=== PATIENT | female | born 1965 | race Hispanic/Latino ===

== ENCOUNTER → 2017-12-07 | Outpatient (CLI) | payer OTHER | LOC: SLEEP 18:40 | PROVIDERS: ATTEND Family Medicine | DX: G47.30 Sleep apnea, unspecified (principal) ==

== ENCOUNTER 2019-03-15 23:48 | Inpatient (IN) | payer OTHER ==
[~2019-03-15] VITALS: Ht 149.9 cm; Wt 86.2 kg
[2019-03-15] MEDS ORDERED: PANTOPRAZOLE 40 MG 10ML VIAL IV STA (23:50)
[2019-03-15] MEDS ORDERED: ONDANSETRON HCL INJ 2MG/ML 2ML 2 MG/ML VIAL IV STA (23:50)
[2019-03-16] VITALS (8 sets, daily range): BP systolic 120–184; BP diastolic 65–103
[2019-03-16] MEDS ORDERED: LIDOCAINE VISC 2% SOLN 15 ML UDC PO ONE
[2019-03-16] MEDS ORDERED: MAGNESIUM/ALUMINUM/SIMETHICONE 30 ML UDC PO ONE
[2019-03-16] MEDS ORDERED: BELLADONNA ALK/PHENOBARBITAL 5 ML UDC PO ONE
[2019-03-16] MEDS ORDERED: MAGNESIUM/ALUMINUM/SIMETHICONE 30 ML UDC ONE (00:06)
[2019-03-16 00:20] LABS: BASOPHILS % 0.3 % (0.0-1.0); EOSINOPHILS # (AUTO) 0.1 (0.0-0.4); EOSINOPHILS % 0.6 % (0.0-6.0); HEMATOCRIT 46.1 % (34.2-44.1); HEMOGLOBIN 15.4 g/dL (12.0-16.0); LYMPHOCYTES % 14.9 % (18.0-39.1); MEAN CORPUSCULAR HEMOGLOBIN 27.5 pg (28-32); MEAN CORPUSCULAR HGB CONC 33.4 g/dL (31-35); MEAN CORPUSCULAR VOLUME 82.5 fL (81-99); MONOCYTES # (AUTO) 0.9 (0.2-0.8); NEUTROPHILS # (AUTO) 10.2 (2.1-6.9); NEUTROPHILS % 76.8 % (38.7-80.0); PLATELET COUNT 227 x10e3/uL (140-360); RED BLOOD COUNT 5.59 x10e6/uL (3.6-5.1); RED CELL DISTRIBUTION WIDTH 12.7 % (11.7-14.4)
[2019-03-16 00:21] LABS: BILIRUBIN,URINE NEGATIVE (NEGATIVE); CLARITY,URINE SL CLOUDY (CLEAR); COLOR,URINE YELLOW (YELLOW); KETONES,URINE NEGATIVE (NEGATIVE); LEUKOCYTE ESTERASE ,URINE NEGATIVE (NEGATIVE); NITRITE,URINE NEGATIVE (NEGATIVE); PROTEIN,URINE DIPSTICK 2+ (NEGATIVE); URINE UROBILINOGEN 0.2 mg/dL (0.2 - 1)
[2019-03-16] MEDS ORDERED: DICYCLOMINE HCL 20 MG/2 ML VIAL IM ONE (00:30)
[2019-03-16 00:36] LABS: BACTERIA,URINE MANY /HPF; EPITHELIAL CELLS,URINE MANY /LPF
[2019-03-16 00:38] LABS: ALANINE AMINOTRANSFERASE 30 IU/L (0-55); ALBUMIN 3.6 g/dL (3.5-5.0); ALBUMIN/GLOBULIN RATIO 0.8 (0.8-2.0); ALKALINE PHOSPHATASE 198 IU/L (40-150); AMYLASE 94 U/L (25-125); BLOOD UREA NITROGEN 12 mg/dL (7-26); BUN/CREATININE RATIO 16 (6-25); CALCIUM 10.5 mg/dL (8.4-10.2); CARBON DIOXIDE 24 mmol/L (22-29); CHLORIDE 97 mmol/L (98-107); CREATINE KINASE 49 IU/L (29-168); CREATININE, SERUM 0.77 mg/dL (0.57-1.11); EST GLOMERULAR FILTRATION RATE > 60 ML/MIN (60-); GLUCOSE 321 mg/dL (74-118); LIPASE 235 U/L (8-78); SODIUM 135 mmol/L (136-145)
[2019-03-16] MEDS ORDERED: ENALAPRIL MALEA20 MG PO (00:52)
[2019-03-16] MEDS ORDERED: CETIRIZINE HCL10 MG PO (00:52)
[2019-03-16] MEDS ORDERED: ATORVASTATIN CA10 MG PO (00:52)
[2019-03-16] MEDS ORDERED: GLIPIZIDE ER10 MG PO (00:52)
[2019-03-16] MEDS ORDERED: CITALOPRAM HBR20 MG PO (00:52)
[2019-03-16] MEDS ORDERED: METFORMIN HCL500 M1 PO (00:52)
--- NOTE | 2019-03-16 01:32 | Diagnostic Imaging Report ---
EXAM: ABDOMEN ACUTE SERIES W/PA CXR DATE: 03/16/2019 INDICATION: Abdominal pain with vomiting. COMPARISON: None FINDINGS: LINES/TUBES: None BOWEL PATTERN: No evidence for obstruction. Moderate volume of stool throughout the colon. SOFT TISSUES: No abnormal calcifications. No mass effect. CHEST: No acute abnormality. Mild left basilar subsegmental atelectasis. No pleural effusion or pneumothorax. Mild considerations of the aortic arch. BONES: Spondylosis of the thoracic spine. Well corticated ossicle projected lateral to the right greater trochanter. There are degenerative changes of the lower lumbar spine. IMPRESSION: Nonspecific, nonobstructive bowel gas pattern. Signed by: Dr. Divya José M.D. on 03/16/2019 1:29 AM
--- NOTE | 2019-03-16 01:44 | Diagnostic Imaging Report ---
EXAM: Gallbladder Ultrasound INDICATION: Right upper quadrant pain. COMPARISON: None. TECHNIQUE: Transverse and longitudinal images of the gallbladder were obtained. FINDINGS: Liver: 15.3 cm in length. Mildly increased echogenicity with coarsened echotexture. Gallbladder: Stones/Sludge: None Wall: 0.3 cm Appearance: No wall thickening, pericholecystic fluid or hydrops. Sonographic Catsaneda's Sign: Negative Bile Ducts: Intrahepatic Ducts: No dilatation Extrahepatic Ducts: Common bile duct measures 0.5 cm, no dilatation Pancreas: Suboptimally visualized shadowing from overlying bowel gas. Right kidney: 11.0 cm in length without hydronephrosis, shadowing nephrolithiasis or mass. Free Fluid: No ascites or pleural effusion IVC and aorta not visualized due to shadowing from overlying bowel gas. Main portal vein: 1.1 cm in length; spectral Doppler not performed. IMPRESSION: Unremarkable gallbladder. No acute abnormality. Limited pancreas. Signed by: Dr. Divya José M.D. on 03/16/2019 1:41 AM
--- OUTSIDE RECORDS SUMMARY | 2019-03-16 02:13 | XMS REPORT ---
[facility] Address Unknown Phone Unavailable Care Team Providers Care Grain Spouter Name Role Phone Madeline PALACIO Unavailable Unavailable Problems This patient has no known problems. Allergies, Adverse Reactions, Alerts This patient has no known allergies or adverse reactions. Medications This patient has no known medications. Results Test Description Test Time Test Comments Text Results Atomic Results Result Comments US GALLBLADDER 2019-03-16 01:38:00 [place] [address] Patient Name: EDER JOE V MR #: [id number] : 1965 Age/Sex: 54/F Req #: [id number] [facility] Physician: Ordered by: NICOLE PALACIO MD Report #: [id number] Location: ER Room/Bed: Procedure: [id number] US/US GALLBLADDER Exam Date: 03/16/19 Exam Time: 0100 REPORT STATUS: Signed EXAM: Gallbladder Ultrasound INDICATION: Right upper quadrant pain. COMPARISON: None. TECHNIQUE: Transverse and longitudinal images of the gallbladder were obtained. FINDINGS: Liver: 15.3 cm in length. Mildly increased echogenicity with coarsened echotexture. Gallbladder: Stones/Sludge: None Wall: 0.3 cm Appearance: No wall thickening, pericholecystic fluid or hydrops. Sonographic Castaneda's Sign: Negative Bile Ducts: Intrahepatic Ducts: No dilatation Extrahepatic Ducts: Common bile duct measures 0.5 cm, no dilatation Pancreas: Suboptimally visualized shadowing from overlying bowel gas. Right kidney: 11.0 cm in length without hydronephrosis, shadowing nephrolithiasis or mass. Free Fluid: No ascites or pleural effusion IVC and aorta not visualized due to shadowing from overlying bowel gas. Main portal vein: 1.1 cm in length; spectral Doppler not performed. IMPRESSION: Unremarkable gallbladder. No acute abnormality. Limited pancreas. Signed by: Dr. Divya Fernandez M.D. on 03/16/2019 1:41 AM Dictated By: PARESH FERNANDEZ MD, MD 0 Transcribed By: KENROY on 03/16/19140 COPY TO: NICOLE PALACIO MD ABDOMEN ACUTE SERIES W/PA CXR 2019-03-16 01:26:00 [place] [address] Patient Name: EDER JOE V MR #: [id number] : 1965 Age/Sex: 54/F Req #: [id number] Adm Physician: Ordered by: NICOLE PALACIO MD Report #: [id number] Location: ER Room/Bed: Procedure: [id number] DX/ABDOMEN ACUTE SERIES W/PA CXR Exam Date: 03/16/19 Exam Time: 0040 REPORT STATUS: Signed EXAM: ABDOMEN ACUTE SERIES W/PA CXR DATE: 03/16/2019 INDICATION: Abdominal pain with vomiting. COMPARISON: None FINDINGS: LINES/TUBES: None BOWEL PATTERN: No evidence for obstruction. Moderate volume of stool throughout the colon. SOFT TISSUES: No abnormal calcifications. No mass effect. CHEST: No acute abnormality. Mild left basilar subsegmental atelectasis. No pleural effusion or pneumothorax. Mild considerations of the aortic arch. BONES: Spondylosis of the thoracic spine. Well corticated ossicle projected lateral to the right greater trochanter. There are degenerative changes of the lower lumbar spine. IMPRESSION: Nonspecific, nonobstructive bowel gas pattern. Signed by: Dr. Divya Fernandez M.D. on 03/16/2019 1:29 AM Dictated By: PARESH FERNANDEZ MD, MD 8 Transcribed By: KENROY on 03/16/19128 COPY TO: NICOLE PALACIO MD
[2019-03-16] MEDS ORDERED: CEFTRIAXONE SOD 1 GM/NS 50 ML 50 ML IV SCH (02:15)
[2019-03-16] MEDS ORDERED: DEXTROSE 50% SYRINGE 50 ML IV PRN (02:15)
[2019-03-16] MEDS ORDERED: MORPHINE SULFATE 2 MG/ML SYR 1ML IV PRN (02:15)
[2019-03-16] MEDS ORDERED: ONDANSETRON HCL INJ 2MG/ML 2ML 2 MG/ML VIAL IV PRN (02:15)
[2019-03-16] MEDS: SODIUM CHLORIDE 0.9% 1000ML 1,000 ML IV SCH ×4 (02:28→17:33)
--- NOTE | 2019-03-16 07:00 | NUR ---
BEDSIDE SHIFT REPORT RECEIVED FROM NIGHT RN. PT DENIES NEEDS AT THIS TIME.
[2019-03-16] MEDS: INSULIN REGULAR, HUMAN 100 UNIT/1 ML 3ML VIAL SQ SCH ×2 (07:30→11:30)
[2019-03-16] MEDS ORDERED: MORPHINE SULFATE INJ 4 MG/ML INJ 1ML IV PRN (08:15)
[2019-03-16] MEDS ORDERED: INSULIN GLARGINE 100 UNITS/ML VIAL SQ ONE (15:15)
[2019-03-16] MEDS ORDERED: CLONIDINE HCL 0.1 MG TAB PO PRN (15:30)
[2019-03-16] MEDS ORDERED: NIFEDIPINE CR 30 MG TAB PO ONE (15:30)
[2019-03-16] MEDS: FAMOTIDINE 20 MG TAB PO SCH (16:25)
[2019-03-16] MEDS: INSULIN LISPRO 100 UNIT/1 ML 3ML VIAL SQ SCH ×2 (16:26→21:19)
[2019-03-16] MEDS ORDERED: DIATRIZOATE MEGL/DIATRIZOA SOD 30 ML BTL PO ONE (16:38)
[2019-03-16] MEDS ORDERED: IOPAMIDOL 370 MG/ML 200 ML INFUS..BTL INJ ONE (16:38)
[2019-03-16] MEDS ORDERED: SODIUM CHLORIDE 0.9% 50ML 50 ML ONE (16:38)
[2019-03-16] MEDS ORDERED: ENOXAPARIN SOD INJ 40 MG/0.4 ML SYR SC SCH (17:00)
--- NOTE | 2019-03-16 19:05 | NUR ---
Transported by [employer] Machine Repairer via wheelchair for CT.
--- NOTE | 2019-03-16 19:20 | NUR ---
Returned from CT.
--- NOTE | 2019-03-16 19:21 | NUR ---
Patient laying in bed and watching tv. No resp distress. Denies pain at this time. Call light within reach and instructed to call for assistance.
--- NOTE | 2019-03-16 20:20 | Diagnostic Imaging Report ---
EXAM: CT Abdomen and Pelvis WITH contrast INDICATION: Abdominal pain. Pancreatitis. COMPARISON: None. TECHNIQUE: Abdomen and pelvis were scanned utilizing a multidetector helical scanner from the lung base to the pubic symphysis after administration of IV contrast. Coronal and sagittal reformations were obtained. Routine protocol was performed. Scan was performed when during portal venous phase. IV CONTRAST: 100 cc Isovue-300 ORAL CONTRAST: Water RADIATION DOSE: Total DLP: 731.02 mGy*cm Estimated effective dose: (DLP x 0.015 x size factor) mSv COMPLICATIONS: None FINDINGS: LINES and TUBES: None. LOWER THORAX: Unremarkable HEPATOBILIARY: Hepatomegaly and hepatic steatosis. No focal hepatic lesions. No biliary ductal dilation. GALLBLADDER: No radio-opaque stones or sludge. No wall thickening. SPLEEN: No splenomegaly. PANCREAS: Mild prominence of the pancreatic head with loss of usual feathery appearance, associated with minimal surrounding fat stranding as seen on images 29 series 2 may reflect minimal focal pancreatic inflammation. No focal masses or ductal dilatation. ADRENALS: No adrenal nodules KIDNEYS/URETERS: Kidneys enhance symmetrically. No hydronephrosis. No cystic or solid mass lesions. No stones. GI TRACT: No abnormal distention, wall thickening, or evidence of bowel obstruction. There are diverticula within the colon without evidence of diverticulitis. Appendix is normal. PELVIC ORGANS/BLADDER: Unremarkable. LYMPH NODES: No lymphadenopathy. VESSELS: There is mild atherosclerotic disease in the aorta and major arterial branches. PERITONEUM / RETROPERITONEUM: No free air or fluid. BONES: Mild grade 1 anterolisthesis of L5 in relation to S1. Mild multilevel spondylosis of the thoracolumbar spine. SOFT TISSUES: Bilateral small fat-containing inguinal hernias. Small fat-containing umbilical hernia, with 1.2 cm aperture. The sac measures 5.8 cm in maximal axial dimension. IMPRESSION: 1. Findings may reflect mild interstitial pancreatitis involving the pancreatic head appropriate clinical setting. No peripancreatic fluid collections. 2. Hepatomegaly and hepatic steatosis. 3. Mild colonic diverticulosis without diverticulitis. Signed by: Dr. Divya José M.D. on 03/16/2019 8:16 PM
[2019-03-17] VITALS: BP 141/91
[2019-03-17 04:00] VITALS: BP 144/75
[2019-03-17 05:49] LABS: BASOPHILS % 0.3 % (0.0-1.0); EOSINOPHILS # (AUTO) 0.1 (0.0-0.4); EOSINOPHILS % 0.8 % (0.0-6.0); HEMATOCRIT 44.4 % (34.2-44.1); HEMOGLOBIN 14.8 g/dL (12.0-16.0); LYMPHOCYTES # (AUTO) 1.6 (1.0-3.2); MEAN CORPUSCULAR HEMOGLOBIN 27.9 pg (28-32); MEAN CORPUSCULAR HGB CONC 33.3 g/dL (31-35); MEAN CORPUSCULAR VOLUME 83.8 fL (81-99); MONOCYTES # (AUTO) 0.7 (0.2-0.8); MONOCYTES % 7.1 % (4.4-11.3); NEUTROPHILS # (AUTO) 7.7 (2.1-6.9); NEUTROPHILS % 75.5 % (38.7-80.0); PLATELET COUNT 207 x10e3/uL (140-360); RED CELL DISTRIBUTION WIDTH 13.1 % (11.7-14.4)
[2019-03-17 06:11] LABS: ALANINE AMINOTRANSFERASE 19 IU/L (0-55); ALBUMIN 3.2 g/dL (3.5-5.0); ALBUMIN/GLOBULIN RATIO 0.8 (0.8-2.0); ALKALINE PHOSPHATASE 142 IU/L (40-150); AMYLASE 40 U/L (25-125); ANION GAP 11.9 mmol/L (8-16); BLOOD UREA NITROGEN 5 mg/dL (7-26); BUN/CREATININE RATIO 8 (6-25); CALCIUM 9.4 mg/dL (8.4-10.2); CARBON DIOXIDE 26 mmol/L (22-29); CHLORIDE 103 mmol/L (98-107); CREATININE, SERUM 0.64 mg/dL (0.57-1.11); EST GLOMERULAR FILTRATION RATE > 60 ML/MIN (60-); GLUCOSE 185 mg/dL (74-118); LIPASE 56 U/L (8-78); POTASSIUM 3.9 mmol/L (3.5-5.1); SODIUM 137 mmol/L (136-145)
[2019-03-17 07:20] LABS: CHOL/HDL RATIO 4.3 (3.0-3.6)
[2019-03-17 08:15] VITALS: BP 124/74
[2019-03-17 08:25] LABS: THYROID STIMULATING HORMONE 2.833 uIU/mL (0.350-4.940)
[2019-03-17] MEDS: FAMOTIDINE 20 MG TAB PO SCH (08:51)
[2019-03-17 08:54] VITALS: BP 124/74
[2019-03-17] MEDS: INSULIN LISPRO 100 UNIT/1 ML 3ML VIAL SQ SCH ×2 (08:54→11:26)
[2019-03-17] MEDS ORDERED: CITALOPRAM HYDROBROMIDE 20 MG TAB PO SCH (09:00)
[2019-03-17] MEDS ORDERED: LOSARTAN POTASS25 MG PO (10:37)
[2019-03-17 11:23] VITALS: BP 132/78
--- NOTE | 2019-03-17 14:46 | Discharge Summary ---
PRIMARY CARE DOCTOR: Dr. Pineda Brewer. FINAL DIAGNOSIS: Acute pancreatitis. SECONDARY DIAGNOSES: 1. Diabetes. 2. Obesity, borderline morbid obesity. 3. Hypertension. 4. Dyslipidemia. CONSULTANTS: None. PROCEDURES/STUDIES PERFORMED: 1. Abdominal ultrasound. 2. A CT of the abdomen and pelvis. HISTORY: Per H and P. HOSPITAL COURSE: The patient was admitted with abdominal pain, lipase elevation, leukocytosis, and low-grade fever. With n.p.o., her pancreatitis resolved very nicely. Lipase is normal now. CT is consistent with pancreatitis. She does not have gallstones. She is not a drinker. Her triglyceride is normal. Therefore, my suspicion is drug-induced pancreatitis. She takes Lipitor, Zyrtec, Celexa, enalapril, glipizide and metformin. I am checking with the pharmacist, most likely I will hold her metformin at this time, even thought the incident is not very high. The patient was told to continue low-fat diet for the next week and follow up with her primary care doctor in two weeks. The patient was seen and examined today. It took 35 minutes total to discharge this patient including discussing with the pharmacist. CONDITION ON DISCHARGE: Improved. DISCHARGE MEDICATIONS: Please see medication reconciliation form. MD TONA Kendall/VAHE /[id number] cc: Pineda Brewer ADDENDUM: Instead of holding her metformin, I will switch her enalapril to losartan, will update her primary care doctor. [place]
== END 2019-03-17 11:46 | disposition home or self-care (01) | DRG 440 ==
LOC: ER 23:48 → ERHOLD 03-16 02:10 → MED/SURG2 03-16 02:38
PROVIDERS: ADMIT Internal Medicine; ATTEND Internal Medicine
DX: K85.30 Drug induced acute pancreatitis without necrosis or infection (principal); T38.3X5A Adverse effect of insulin and oral hypoglycemic [antidiabetic] drugs, initial encounter; E11.65 Type 2 diabetes mellitus with hyperglycemia; I10 Essential (primary) hypertension; E66.01 Morbid (severe) obesity due to excess calories; Z68.38 Body mass index [BMI] 38.0-38.9, adult; Z79.84 Long term (current) use of oral hypoglycemic drugs
CPT/HCPCS: 36415; 74022; 74177; 76705; 80053; 80061; 81001; 82150; 82550; 82553; 82948; 83690; 84443; 84484; 85025; 93005; 96372; 96374; 96375; 99284; J0500; J0696; J1650; J1815; J2270; J2405; J7030; Q9967

== ENCOUNTER → 2019-12-05 | Outpatient (CLI) | payer OTHER ==
[~2019-12-05] MED LIST: ATORVASTATIN CA10 MG PO; CETIRIZINE HCL10 MG PO; CITALOPRAM HBR20 MG PO; ENALAPRIL MALEA20 MG PO; GLIPIZIDE ER10 MG PO; LOSARTAN POTASS25 MG PO; METFORMIN HCL500 M1 PO
--- NOTE | 2019-12-05 16:03 | Diagnostic Imaging Report ---
Bilateral, 3 views each. Bilateral heels, 2 views each. History: Pain in bottom of both feet. Findings: There are mild vascular calcifications bilaterally. Bone mineralization is normal. There is no evidence of fracture or dislocation. There are no lytic or sclerotic lesions. The joint spaces are within normal limits. Small calcaneal spurs are present bilaterally. IMPRESSION: No acute osseous abnormality. Nuclear medicine bone scan would be more sensitive for detection of early osteomyelitis. Signed by: Eric Perkins on 12/05/2019 4:01 PM
== END ==
LOC: RAD 15:07
PROVIDERS: ATTEND Family Medicine
DX: M79.672 Pain in left foot (principal); M79.671 Pain in right foot; M77.32 Calcaneal spur, left foot; M77.31 Calcaneal spur, right foot

== ENCOUNTER → 2020-01-16 | Outpatient (CLI) | payer OTHER ==
--- NOTE | 2020-01-16 12:47 | Diagnostic Imaging Report ---
EXAMINATION: HIP LEFT 2-3 VW (+/- PELVIS) INDICATION: Left hip pain COMPARISON: None FINDINGS: No acute fracture or dislocation. Alignment is anatomic. No substantial degenerative change. The soft tissues appear unremarkable. IMPRESSION: No acute osseous injury. Signed by: Marry Molina MD on 01/16/2020 12:44 PM
== END ==
LOC: RAD 11:36
PROVIDERS: ATTEND Family Medicine
DX: M25.552 Pain in left hip (principal)